=== PATIENT | male | born 1960 | race Caucasian/White ===

== ENCOUNTER 2018-12-22 11:59 | Day surgery (SDC) | payer BC ==
[~2018-12-22 11:59] MED LIST: ACETAMINOPHEN 1,000 MG/100 ML BTL IVPB ONE; CEFAZOLIN 1 Gram 1 GM/50 ML BAG IVPB ONE; CEFAZOLIN 2 Gram 2 GM/50 ML BAG IVPB ONE
[2018-12-22] MEDS ORDERED: LIDOCAINE 2% MDV (20MG/ML) 20ML VIAL IV ONE (12:00)
[2018-12-22] MEDS ORDERED: PROPOFOL 10 MG/ML VIAL IV ONE (12:00)
[2018-12-22] MEDS ORDERED: RINGERS SOLUTION,LACTATED 1,000 ML IV ONE (12:34)
[2018-12-22] MEDS ORDERED: METHYLPREDNISOLONE 40MG/VIAL IU ONE (13:52)
[2018-12-22] MEDS ORDERED: BUPIVACAINE 0.5% W/EPI MPF 30 ML VIAL SQ ONE (13:52)
--- NOTE | 2018-12-23 08:51 | Operative Note ---
DATE OF SURGERY: 12/22/2018 PREOPERATIVE DIAGNOSIS: Arthrofibrosis of the left knee. POSTOPERATIVE DIAGNOSIS: Arthrofibrosis of the left knee. OPERATION: 1. Left knee manipulation under anesthesia. 2. Left knee injection. STAFF SURGEON: Juan J Thompson MD ANESTHESIA: General. PREPARATION: Chloraprep. INDIVIDUAL CONSIDERATIONS: None. PROCEDURE: The patient was taken to the operating room, placed supine on the operating room table. He had a successful induction of general anesthetic. I went ahead and manipulated his knee at about 100 degrees of flexion. There was a solid end point. I was able to manipulate him to about 130-140 degrees of flexion. He did have full extension. I then prepped him superomedially with ChloraPrep and then injected him with 20 mL of 0.5% Marcaine and 40 mg of Depo- Medrol through a sterile 18-gauge needle. He was taken back to recovery in good condition. There were no complications. PRAKASH
== END 2018-12-22 14:29 | disposition home or self-care (01) ==
LOC: SUR 11:59
PROVIDERS: ATTEND Orthopaedic Surgery
DX: M24.662 Ankylosis, left knee (principal); I10 Essential (primary) hypertension; E78.00 Pure hypercholesterolemia, unspecified
CPT/HCPCS: J1030; J7120